=== PATIENT | male | born 1950 | race Caucasian/White ===

== ENCOUNTER → 2018-08-13 | Outpatient (CLI) | payer OTHER | END | disposition home or self-care (01) | LOC: ROC 08-12 07:05 | PROVIDERS: ATTEND Radiology Radiation Oncology | DX: Z08 Encounter for follow-up examination after completed treatment for malignant neoplasm (principal); C61 Malignant neoplasm of prostate; Z79.899 Other long term (current) drug therapy; Z88.5 Allergy status to narcotic agent | CPT/HCPCS: 99212; G0463 ==

== ENCOUNTER 2019-03-02 08:16 | Outpatient (CLI) | payer MEDICARE | END 2019-03-02 23:59 | disposition home or self-care (01) | LOC: ROC 08:16 | PROVIDERS: ATTEND Radiology Radiation Oncology | DX: C61 Malignant neoplasm of prostate (principal) | CPT/HCPCS: G0463 ==

== ENCOUNTER 2019-07-25 08:21 | Outpatient (CLI) | payer MEDICARE | END 2019-07-25 23:59 | disposition home or self-care (01) | LOC: ROC 08:21 | PROVIDERS: ATTEND Radiology Radiation Oncology | DX: Z02.9 Encounter for administrative examinations, unspecified (principal) ==